=== PATIENT | male | born 1950 | race Hispanic/Latino ===

== ENCOUNTER → 2025-07-04 | Day surgery (SDC) | payer MEDICARE ==
[2025-07-03 16:10] LABS: BASOPHILS % 0.6 % (0.0-1.0); EOSINOPHILS % 2.9 % (0.0-6.0); LYMPHOCYTES % 14.5 % (18.0-39.1); MONOCYTES % 7.2 % (4.4-11.3); NEUTROPHILS % 74.3 % (38.7-80.0); RED CELL DISTRIBUTION WIDTH 13.0 % (11.7-14.4)
[2025-07-03 16:34] LABS: EST GLOMERULAR FILTRATION RATE 93.0 ML/MIN (>=60)
[~2025-07-04] MED LIST: ACETAMINOPHEN 1000 MG/100 ML 100 ML IV ONE; AUGMENTIN 500-1 EACH PO; CYCLOBENZAPRINE10 MG PO; DEXAMETHASONE SOD PHOS INJ 4 MG/ML SDV ONE; DICYCLOMINE HCL10 MG PO; FENTANYL CITRATE/PF 100MCG/2 ML INJ ONE; FINASTERIDE5 MG PO; FLOMAX0.4 MG PO; HYDROCODON-ACE1 EAC9 PO; KETOCONAZOLE15 GM TOP; KETOROLAC TROMETHAMINE 30 MG/ML VIAL ONE; LANTANOPROST; LEXAPRO10 MG PO; LIDOCAINE HCL 2% LOCAL INJ 5 ML SDV VIAL INJ ONE; LIPITOR20 MG PO; MIDODRINE HCL5 MG PO; MYRBETRIQ50 MG PO; NAPROSYN500 MG PO; ONDANSETRON HCL INJ 2MG/ML 2ML 2 MG/ML VIAL ONE; ONDANSETRON ODT8 MG PO; PREDNISOLONE ACE5 M1; PROPOFOL IV EMULSION 0 ML IV ONE; PROPOFOL IV EMULSION 10 MG/ML 20 ML VIAL ONE; RHOPRESSA2.5 ML; ROCURONIUM BROMIDE 0 ML IV ONE; TIMOPTIC 0.5%1 EACH OU; ZOLPIDEM TARTRAT5 MG PO
[2025-07-04] MEDS: CEFAZOLIN SODIUM 2 GM ONE (07:44)
[2025-07-04] MEDS: LACTATED RINGER'S 1,000 ML ONE (07:44)
[2025-07-04 09:40] VITALS: TEMP 97.4
[2025-07-04] MEDS: HYDROCODONE/APAP 10MG-325MG TAB ONE (10:40)
[2025-07-04 12:00] VITALS: BP 148/88; PULSE 80; RESP 14; O2SAT 97
== END | disposition home or self-care (01) ==
LOC: OR 06:37
PROVIDERS: ATTEND Surgery
DX: L02.212 Cutaneous abscess of back [any part, except buttock and flank] (principal); G47.33 Obstructive sleep apnea (adult) (pediatric); E66.01 Morbid (severe) obesity due to excess calories; I10 Essential (primary) hypertension; E78.5 Hyperlipidemia, unspecified; G89.29 Other chronic pain; N40.0 Benign prostatic hyperplasia without lower urinary tract symptoms; Z88.1 Allergy status to other antibiotic agents; Z01.810 Encounter for preprocedural cardiovascular examination; Z01.812 Encounter for preprocedural laboratory examination; Z01.818 Encounter for other preprocedural examination; Z79.1 Long term (current) use of non-steroidal anti-inflammatories (NSAID); Z79.899 Other long term (current) drug therapy; Z68.43 Body mass index [BMI] 50.0-59.9, adult; Z86.718 Personal history of other venous thrombosis and embolism
CPT/HCPCS: 10061; 36415; 71046; 80048; 85025; 87071; 87075; 87205; 93005 ×2; J0131; J1100; J1885; J2003; J2405; J2704; J3010; J7121